=== PATIENT | male | born 1945 | race Caucasian/White ===

== ENCOUNTER 2022-12-22 13:46 | Emergency (ER) | payer MEDICARE, SELFPAY ==
[2022-12-22 13:59] VITALS: BP 168/86; PULSE 61; RESP 18; TEMP 36.4; O2SAT 96; BMI 22.9
--- NOTE | 2022-12-22 14:06 | DI.RAD.S_ITS ---
PROCEDURE: XR ABDOMEN MIN 2V INDICATIONS: rectal pain TECHNIQUE: 2 views of the abdomen were acquired. COMPARISON: None. FINDINGS: Surgical changes and devices: None. Bowel: No pneumoperitoneum. The bowel gas pattern is normal except for mild generalized colonic obstipation. Soft tissues: No masses; visualized solid organ contours appear normal in size. No suspicious abdominal calcifications. Bones: No suspicious bony abnormalities. IMPRESSION: Mild generalized colonic obstipation. Dictated by: Lan Marquez M.D. on 12/22/2022 at 14:56 Approved by: Lan Marquez M.D. on 12/22/2022 at 14:56
--- NOTE | 2022-12-22 15:29 | PC.NURSE ---
pt reports that he had a large bowel movement in the bathroom . states he feels great and would like to go home. pt left vdc. no acute distress.
== END 2022-12-22 15:27 | disposition left against medical advice (07) ==
PROVIDERS: Emergency Provider Emergency Medicine
DX: R10.9 Unspecified abdominal pain (principal); K59.00 Constipation, unspecified
CPT/HCPCS: 74019; 99283